=== PATIENT | female | born 1980 | race Caucasian/White ===

== ENCOUNTER 2018-10-31 21:35 | Emergency (ER) | payer MEDICAID, SELFPAY ==
[2018-10-31 21:36] VITALS: BP 143/76; PULSE 96; RESP 17; TEMP 36.1; O2SAT 100; BMI 31.8
--- NOTE | 2018-10-31 21:39 | EKG12_ITS ---
Test Reason : CP Blood Pressure : / mmHG Vent. Rate : 097 BPM Atrial Rate : 097 BPM P-R Int : 136 ms QRS Dur : 078 ms QT Int : 360 ms P-R-T Axes : 054 022 046 degrees QTc Int : 457 ms Normal sinus rhythm Normal ECG Confirmed by KINSEY WHITE, VEE ([id number]), editorial writer VALERIO DANIEL ([id number]) on 11/04/2018 11:37:43 AM Referred By: TL Confirmed By:VEE EUCEDA MD
[2018-10-31 22:44] LABS: Absolute Lymphocyte Count 2.91 X10^3/ul (0.83-4.51); Absolute Neutrophil Count 6.8 X10^3/uL (2.0-7.7); Basophil# 0.02 X10^3/uL; Basophil% 0.2 % (0-1); Eosinophil# 0.14 X10^3/uL; Eosinophils% 1.3 % (0-5); Hematocrit 41.3 % (37-47); Hemoglobin 13.5 g/dl (12.0-15.0); Lymphocyte # 2.91 X10^3/ul (4.0); Lymphocyte % 26.6 % (19-41); Mean Corp Hgb Conc 32.7 g/gl (32-36); Mean Corpuscular Hgb 25.5 pg (27.0-32.0); Mean Corpuscular Volume 78.1 fL (81-99); Mean Platelet Vol. 9.5 fl (6.2-12.0); Monocyte# 1.03 X10^3/uL; Monocyte% 9.4 % (0-10); Neutrophil # 6.82 X10^3/uL (2.7-7.7); Neutrophil % 62.2 % (47-70); Platelet Count 333 K/mm3 (150-450); RBC Distribution Width CV 15.5 % (11.6-14.6); Red Blood Count 5.29 M/mm3 (4.2-5.4)
--- NOTE | 2018-10-31 22:50 | RAD_ITS ---
STUDY: X-RAY CHEST REASON FOR EXAM: Female, 38 years old. Chest pain TECHNIQUE: Portable chest COMPARISON: None. FINDINGS: There is no demonstrated pleural abnormality. There is a 1 cm right lower lobe nodular density. Normal size heart. Normal mediastinum and sarai. Normal visualized pulmonary arteries. Normal visualized aortic arch and descending thoracic aorta. Normal visualized thoracic spine. Normal visualized ribs, clavicles, and shoulders. There is no demonstrated abnormality of the visualized soft tissue structures of the upper abdomen. RAD/Chest 1 View (Portable) IMPRESSION: 1 cm right lower lobe nodular density which likely is not the nipple and likely a pulmonary nodule. CT chest follow-up recommended Electronically Signed: Alvaro Velazquez, at 23:08 EDT Tel , Service support ,
[2018-10-31 22:53] VITALS: PULSE 91; RESP 16; O2SAT 98
[2018-10-31 22:55] LABS: POSITIVE COUNT NO; POSITIVE DIFFERENTIAL NO; POSITIVE MORPHOLOGY NO
--- NOTE | 2018-10-31 22:56 | ED.VISSUMM ---
- ER Visit Summary Date of Service: 10/31/18 Chief Complaint: [] Intermittent chest pressure since 7:00 today History of Present Illness: The patient is a 38 F [] indicates she was feeling fine all day today she had dinner around 7:00 when she went to the [employer] type store when she carried her daughter she felt the pressure in her subxiphoid area, she put the daughter in a cart and then she was reaching for objects she again began to feel intermittent pressure in her chest, then she when she went to leave the store and picked up her daughter again out of the cart she explains chest pressure and she was brought to the emergency department. The first time she is really ever experienced chest pain she does not express chest pain when she exerts herself or during normal daily activities The chest pressure is now improving, she indicates she has no history of HI PE or DVT she is very healthy has no past history although there is a strong family history for CAD on the mother side, she has had normal bowel bladder habits indicates it usually does not bother her to hold or carry her daughter Physical Examination: [] vSigns within normal range General, no distress resting comfortably HEENT is generally unremarkable The neck is supple no adenopathy Cardiovascular, regular rate and rhythm Lungs, clear bilateral Abdomen, soft nontender Extremities, no clubbing cyanosis or edema Neurologic, awake alert answering questions appropriately moving all 4 extremities Test Results: [] Emergency Department Course and Treatment: [] Shows a sinus rhythm nothing acute at this time given all the above and her history and her risk factors and family history screening labs are obtained Treatment Plan: [] EKG shows a sinus rhythm, all screening labs are generally unremarkable she was reports, chest x-ray unremarkable, reevaluation she is feeling better, her d-dimer was negative, will back to reassess her she is feeling better family in the room and mother, we discussed that the exact etiology of symptoms are unclear and she would need further management and testing she understood the concept of occult cardiac condition or life-threatening disorders, we discussed keeping her here for admission she declined that, we discussed having her stay for repeat cardiac enzymes, she declined that as well states she felt better she wants to go home and she will follow with her outpatient providers and return for change in symptoms Disposition: [] Home stable declined admission Impression: [] Chest pain resolved etiology unclear This note was generated with [employer] software. It may contain incorrect words, spelling, and punctuation that were not noted in review of the chart prior to signing ED Disposition - Plan for ED Patient: Referrals: Cody Hirsch MD [Primary Care Provider] -
[2018-10-31 23:01] LABS: Anion Gap 8 (5-15); BUN 17 mg/dL (7-18); BUN/Creat Ratio 21.4 RATIO (10-20); Calcium,Total 9.2 mg/dL (8.5-10.1); Chloride 106 mmol/L (98-107); EST Glomerular Filtration Rate 86 mL/min (>60); Est Glom Filt Rate - Afr Amer 105 mL/min (>60); Estimated Creatinine Clearance 79.65 ml/min; Glucose 106 mg/dL (74-106); Potassium 3.7 mmol/L (3.5-5.1); Sodium Level 140 mmol/L (136-145)
[2018-10-31 23:17] LABS: Internal QC Validated? YES +Cl - CLEAR BKGD; Pregnancy, Serum, hCG Quali. NEGATIVE Negative
[2018-10-31 23:18] LABS: Lipase 125 U/L (73-393)
[2018-10-31] MEDS: Mag Hydrox/Al Hydrox/Simeth 30 ML UDC PO (23:19)
[2018-10-31 23:22] LABS: AST(SGOT) 19 U/L (15-37); Alanine Aminotransfer ALT/SGPT 28 U/L (13-56); Albumin, Serum 3.7 g/dL (3.2-5.0); Alkaline Phosphatase 112 U/L (45-117); Bilirubin, Direct 0.09 mg/dL (0.00-0.30); Globulin 3.8 g/dL (2.2-4.2); Protein, Total 7.5 g/dL (6.4-8.2)
[2018-10-31 23:27] VITALS: BP 137/73; PULSE 91; RESP 18; O2SAT 99
[2018-10-31 23:54] LABS: D-Dimer Quantitative (DVT/PE) < 0.27 FEU/ug/m (0.27-0.49)
--- NOTE | 2018-11-01 00:16 | ED.DEP ---
ED Disposition - Plan for ED Patient: Instructions: ED Chest Pain Atypical Unkn Cause Referrals: Cody Hirsch MD [Primary Care Provider] -
[2018-11-01 00:23] VITALS: BP 121/67; PULSE 95; RESP 16; O2SAT 97
== END 2018-11-01 00:42 | disposition home or self-care (01) ==
LOC: ED 23:16
PROVIDERS: Emergency Provider Emergency Medicine; Family Provider Family Medicine; PCP Family Medicine
DX: R07.9 Chest pain, unspecified (principal)
CPT/HCPCS: 71045; 80048; 80076; 83690; 84484; 84703; 85025; 85379; 93005; 99285; A4216

== ENCOUNTER → 2020-11-16 10:19 | Outpatient (CLI) | payer MEDICAID, SELFPAY ==
--- NOTE | 2020-11-16 10:26 | RAD_ITS ---
STUDY: X-RAY - CERVICAL SPINE REASON FOR EXAM: Female, 40 years old. CERVICAL C6-C7 AND LEFT DELTOID TECHNIQUE: 2 view(s) of the cervical spine were obtained. COMPARISON: None FINDINGS: Normal anterior atlantoaxial articulation. Normal odontoid process. Normal cervical lordosis. Normal vertebral bodies and endplates. Normal disc space heights. Normal visualized intervertebral neuroforamina. The soft tissue structures are unremarkable. RAD/Cerv Spine 2 or 3 Views IMPRESSION: Normal x-ray examination of the visualized cervical spine. Electronically Signed: Emmanuel Stewart MD at 8:15 EDT Tel , Service support ,
--- NOTE | 2020-11-16 10:26 | RAD_ITS ---
STUDY: X-RAY - LEFT HUMERUS REASON FOR EXAM: Left upper arm pain in region of deltoid/scapula since July, no specific injury. TECHNIQUE: 2 view(s) of the humerus. COMPARISON: None. FINDINGS: Normal visualized humerus. There is no demonstrated fracture or osseous destructive process. There is no demonstrated soft tissue abnormality. RAD/Humerus min 2 Views IMPRESSION: Normal x-ray examination of the left humerus. Electronically Signed: Shashank Shetty MD at 12:09 EDT Tel , Service support ,
== END ==
PROVIDERS: PCP Family Medicine; Referring Provider Chiropractor Orthopedic; Visit Provider Chiropractor Orthopedic
DX: M79.622 Pain in left upper arm (principal)
CPT/HCPCS: 72040; 73060

== ENCOUNTER 2021-01-27 17:00 | Outpatient (RCR) | payer MEDICAID, SELFPAY ==
--- NOTE | 2020-12-01 17:12 | HP.PTEVAL ---
Patient's Visit Information JULIANA GUPTA is a 40 year old F referred to Physical Therapy by MARIJA Rosario with a diagnosis of Left Shoulder Pain. Date of Evaluation: 12/01/20 Physical Therapist: Bessy Sahni DPT - Visit Plan Frequency: 3x /Week Duration: 4 Weeks Plan: Focus on scapular s/s- modality of US- heat. HEP Given IE: postural correction, scap retraction, CT Junction Stretch, Upper Trap Stretch, Levator Stretch, - Subjective Left Shoulder pain since beginning of the year-insidious onset- feels that its progressively getting worse. Pain is in the anterior shoulder, along the shoulder blade- radiates to the deltoid- and is now radiating into the fingers. Right hand dominate. Worst: 8/10 Agg: sitting at her desk for to long, driving for any length of time, mowing (zero turn), lifting. Can't hop picker her youngest daughter with her hands has to put her forearm under her and lift her (5 years old 30lbs). Best: 3/10 Eases: heat. N/T in the last 3 and the thumb- depending on how the pain comes down her arm. Describes the pain in the shoulder blade as grabbing pain- anterior shoulder is more an ache- deltoid is a sharp stabbing pain- deltoid is the most painful spot. Has had x-rays on her shoulder and neck which were both negative. 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 Has never had shoulder issues or neck issues but has had carpal tunnel on 2015 right 2016 left side. Does have increased ADDISON- left side on the top of the head and in the front. No increase in blurred vision or dizziness. 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 PMHx/Meds: none. Has not had injections- is taking the anti-inflam they gave her but its not really helping. Today pain is a 5-6/10. Sees a chiro regularly and a massotherapist 1x a month. Sleep- will waked her up if she rolls over onto the left UE. - Objective Posture: Fh, RS guarding of the left UE. Gait: decreased arm swing and trun rotation. Palpation: tender along upper trap, levator insertion, bicipital groove, infrapinatus, medial border of the scapula and down the deltoid. ROM: Cervical: WNL, Shoulder: all WFL pain through end range flexion and abduction. Pain with IR. Strength: Scap: fair minus, Shoulder: 4/5 with pain, Elbow: 4+/5 with pain, Wrist: 5/5 with pain, Lumber Sticker Strength: Right: 70 lbs Left: 30 lbs. Sensation: WFL. Special Test: Yoshi Donnell: positive, Neer: positive, Speeds: positive - Goals Goal 1:: Patient will be I with HEP and progression Goal Time Frame: 4-6 Weeks Goal 2:: Patient will maintain proper posture t/o tx session to demo increased scap s/s Goal Time Frame: 4-6 Weeks Goal 3:: Patient will report no pain with all ROM Goal Time Frame: 4-6 Weeks Goal 4:: Patient will perform all ADL's without pain Goal Time Frame: 4-6 Weeks - Rehabilitation Potential Physical Therapy Diagnosis: Patient presents with hypomobility- she has decreased ROM, UE and scapular strength/stabilization and muscular endurance leading to poor posture and increased pain with ADL's Rehabilitation Potential: Good - Anticipated Interventions Patient/Client Instruction: Educate patient on: Benefits of Fitness Program Therapeutic Exercise to Include: Strength training, Endurance training, Body mechanics, Postural training, Flexibilty training, Neuromotor development, Dynamic Lumbar Stabilization, Scapular Strength/Stabilization For the Purpose of:: To improve muscle performance and motor function TENS: Yes Cryotherapy (ice pack, ice massage): Yes Thermo therapy (hot pack): Yes Ultrasound (thermal/non thermal): Yes Thank you for the opportunity to evaluate your patient. For Medicare and Medicare HMO plans, please review the plan of care and approve it. It will need to be FAXED BACK to us at [phone] for Medicare purposes. For Medicare only, by signing this I certify the plan of care. Please let me know if there are questions or concerns regarding this plan of care. Physician Signature: Date:
--- NOTE | 2020-12-30 17:21 | HP.PTREVAL_ITS ---
MARIJA Rosario, It has been my pleasure to treat JULIANA GUPTA over the last 9 visits for Left Shoulder Pain. Please see the progress note below for an update on the physical therapy plan of care! Subjective: Patient reports that she is better but still has pain with heavy activity. ROM is improving and able to sleep on that side. Still has catching and pays for things later. She does much better with ROM exercises instead of strength training. Objective/Function: Posture: Fh, RS no guarding of the left UE. Gait: good arm swing and trunk rotation. Palpation: tender along upper trap, levator insertion, bicipital groove, infrapinatus, medial border of the scapula and down the deltoid. ROM: Cervical: WNL, Shoulder: all WFL slight pain but improving with IR. 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 Sensation: WFL. Special Test: Yoshi Donnell: positive, Neer: positive, Speeds: positive Plan Plan: 12/30/2020: Continue 2x a week for 4 weeks- and return to ortho for further evaluation. Focus on scapular s/s- modality of US- heat. HEP Given IE: postural correction, scap retraction, CT Junction Stretch, Upper Trap Stretch, Levator Stretch, Goals Goal 1:: Patient will be I with HEP and progression Goal Time Frame: 4-6 Weeks Goal Progress: Progressing Goal 2:: Patient will maintain proper posture t/o tx session to demo increased scap s/s Goal Time Frame: 4-6 Weeks Goal Progress: Progressing Goal 3:: Patient will report no pain with all ROM Goal Time Frame: 4-6 Weeks Goal Progress: Progressing Goal 4:: Patient will perform all ADL's without pain Goal Time Frame: 4-6 Weeks Goal Progress: Progressing Anticipated Interventions Patient/Client Instruction: Educate patient on: Benefits of Fitness Program Therapeutic Exercise to Include: Strength training, Endurance training, Body mechanics, Postural training, Flexibilty training, Neuromotor development, Dynamic Lumbar Stabilization, Scapular Strength/Stabilization For the Purpose of:: To improve muscle performance and motor function TENS: Yes Cryotherapy (ice pack, ice massage): Yes Thermo therapy (hot pack): Yes Ultrasound (thermal/non thermal): Yes Please do not hesitate to contact me at [phone] by phone or if you have questions or concerns regarding this new plan of care! Sincerely, CAROLINA MalloryT
--- NOTE | 2021-01-27 17:14 | HP.PTREVAL ---
MARIJA Rosario, It has been my pleasure to treat JULIANA GUPTA over the last 17 visits for Left Shoulder Pain. Please see the progress note below for an update on the physical therapy plan of care! Subjective: Patient reports that she is having an MRI of both her neck and shoulder but is having a hard time getting back into see the MD so its been a slow process. No significant changes in the shoulder- she is having a ton of spasm and twisting in the shoulder- so painful and other times certain movements make it happen.- pushing the cart. Objective/Function: Posture: Fh, RS no guarding of the left UE. Gait: good arm swing and trunk rotation. Palpation: tender along upper trap, levator insertion, bicipital groove, infrapinatus, medial border of the scapula and down the deltoid. ROM: Cervical: WNL, Shoulder: all WFL slight pain but improving with IR. 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 Sensation: WFL. Special Test: Yoshi Donnell: positive, Neer: positive, Speeds: positive. NO changes since re-evaluation Plan Plan: 01/27/2021: Hold- follow up with MD. 12/30/2020: Continue 2x a week for 4 weeks- and return to ortho for further evaluation. Focus on scapular s/s. Modality of US/heat Goals Goal 1:: Patient will be I with HEP and progression Goal Time Frame: 4-6 Weeks Goal Progress: Progressing Goal 2:: Patient will maintain proper posture t/o tx session to demo increased scap s/s Goal Time Frame: 4-6 Weeks Goal Progress: Progressing Goal 3:: Patient will report no pain with all ROM Goal Time Frame: 4-6 Weeks Goal Progress: Progressing Goal 4:: Patient will perform all ADL's without pain Goal Time Frame: 4-6 Weeks Goal Progress: Progressing Anticipated Interventions Patient/Client Instruction: Educate patient on: Benefits of Fitness Program Therapeutic Exercise to Include: Strength training, Endurance training, Body mechanics, Postural training, Flexibilty training, Neuromotor development, Dynamic Lumbar Stabilization, Scapular Strength/Stabilization For the Purpose of:: To improve muscle performance and motor function TENS: Yes Cryotherapy (ice pack, ice massage): Yes Thermo therapy (hot pack): Yes Ultrasound (thermal/non thermal): Yes Please do not hesitate to contact me at [phone] by phone or if you have questions or concerns regarding this new plan of care! Sincerely, CAROLINA MalloryT
--- NOTE | 2021-05-09 08:28 | HP.PT.NRP ---
JULIANA GUPTA was seen in my office for initial evaluation on 12/01/20. The following Plan of Care was established for this patient: Initial Frequency: 3x /Week Initial Duration: 4 Weeks Patient/Client Instruction: Educate patient on: Benefits of Fitness Program Therapeutic Exercise to Include: Strength training, Endurance training, Body mechanics, Postural training, Flexibilty training, Neuromotor development, Dynamic Lumbar Stabilization, Scapular Strength/Stabilization For the Purpose of:: To improve muscle performance and motor function TENS: Yes Cryotherapy (ice pack, ice massage): Yes Thermo therapy (hot pack): Yes Ultrasound (thermal/non thermal): Yes This patient was last seen in our office . Pertinent comments regarding their Physical therapy will appear below: Patient has not attended PT in over 4 weeks and is appropriate for discharge- return to MD for further evaluation as needed. At this point I will be discontinuing this patient from physical therapy. I would be happy to see this patient again in the future if found appropriate by the physician. Thank you! Bessy Sahni, CAROLINAT Balance/Gait/Functional tests - Balance/Special Test Scores Quick DASH Score: [phone]
== END 2021-01-27 19:00 | disposition home or self-care (01) ==
LOC: PT 17:00
PROVIDERS: PCP Family Medicine; Referring Provider Physician Assistant Surgical; Visit Provider Physician Assistant Surgical
DX: S43.422D Sprain of left rotator cuff capsule, subsequent encounter (principal); X58.XXXD Exposure to other specified factors, subsequent encounter
CPT/HCPCS: 97014; 97110; 97162; 97164; G0283